=== PATIENT | male | born 1970 | race Caucasian/White ===

== ENCOUNTER 2017-06-29 01:54 | Observation (INO) | payer OTHER ==
[2017-06-29] MEDS ORDERED: Ondansetron 4 MG/2 ML SDV ONE ×2 (02:01→02:04)
[2017-06-29] MEDS ORDERED: HYDROmorphone 1 MG/ML Syringe ONE ×6 (02:02→04:21)
[2017-06-29] MEDS ORDERED: Albuterol 0.083% 2.5 MG/3 ML Neb Soln ONE ×2 (02:04→03:31)
[2017-06-29 02:43] LABS: CHLORIDE,CL 104 mmol/L (98-107); SODIUM,NA 142 mmol/L (136-145)
[2017-06-29] MEDS ORDERED: Sodium Chloride 0.9% 1,000 ML IV ONE (02:50)
[2017-06-29] MEDS ORDERED: Diphtheria,Pertussis(Acell),Tetanus Vaccine 0.5 ML SDV ONE (03:03)
--- NOTE | 2017-06-29 03:32 | EDM.PDOC ---
ED HPI GENERAL MEDICAL PROBLEM - General Chief Complaint: Trauma Stated Complaint: trauma Time Seen by Provider: 06/29/17 01:55 Source of Information: Reports: Patient, Family (), Old Records History Limitations: Reports: No Limitations, Intoxication - History of Present Illness INITIAL COMMENTS - FREE TEXT/NARRATIVE: Patient is a 46-year-old gentleman brought in to the ER by in a private vehicle history obtained from states that patient fell down a flight of stairs hitting his head against the floor at the end of the fall states that he lost consciousness for approximately 3 minutes once he regained consciousness she applied ice to the top of his head because he was bleeding and help him into the car and drove to our hospital states that during the transfer she noted seizure activity patient has history of normal tone no hypoxia sleep apnea right leg pain lower back pain seizure history PTSD and heavy smoking cigarette addiction Onset: Today, Sudden Duration: Minutes:, Improving Location: Reports: Head, Back, Upper Extremity, Right Back Pain Score (Numeric/FACES): 6 - Related Data Allergies Allergy/AdvReac Type Severity Reaction Status Date / Time No Known Allergies Allergy Verified 06/29/17 02:24 Home Meds: Home Meds Citalopram Hydrobromide [Celexa] 40 mg PO DAILY 06/29/17 [History] Cyclobenzaprine [Flexeril] 10 mg PO TID PRN 06/29/17 [History] Divalproex Sodium [Divalproex Sodium ER] 1,500 mg PO BEDTIME 06/29/17 [History] Ibuprofen 800 mg PO TID PRN 06/29/17 [History] Lidocaine 5% [Lidoderm 5%] 700 mg TOP DAILY 06/29/17 [History] Prazosin [Minpress] 1 mg PO BEDTIME 06/29/17 [History] Propranolol HCl [Propranolol] 80 mg PO DAILY 06/29/17 [History] traZODone HCl [Trazodone HCl] 150 mg PO BEDTIME 06/29/17 [History] Social & Family History - Tobacco Use Smoking Status *Q: Current Every Day Smoker Years of Tobacco use: 20 Used Tobacco, but Quit: No - Recreational Drug Use Recreational Drug Use: No Review of Systems - Review of Systems Review Of Systems: See Below Constitutional: Reports: No Symptoms Eyes: Reports: No Symptoms Ears: Reports: No Symptoms Nose: Reports: No Symptoms Mouth/Throat: Reports: Muffled Voice Respiratory: Reports: No Symptoms Cardiovascular: Reports: No Symptoms GI/Abdominal: Reports: No Symptoms Genitourinary: Reports: No Symptoms Musculoskeletal: Reports: Shoulder Pain, Back Pain, Muscle Pain, Muscle Stiffness (Lower back lower back) Skin: Reports: Bruising (Right parietal area), Wound (Right parietal area) Neurological: Reports: Headache, Seizure (History of seizure), Tremors, Difficulty Walking, Weakness, Gait Disturbance Psychiatric: Reports: Depression, Anxiety, Other (PTSD) ED EXAM, GENERAL - Physical Exam Exam: See Below Exam Limited By: No Limitations General Appearance: Alert, WD/WN, Mild Distress Eye Exam: Bilateral Eye: EOMI, PERRL Ears: Normal External Exam, Normal Canal, Hearing Grossly Normal, Normal TMs Ear Exam: Bilateral Ear: Auricle Normal, Canal Normal, TM normal Nose: Normal Inspection, Normal Mucosa, No Blood Throat/Mouth: No: Normal Inspection, Normal Teeth Head: Other (Right temporal occipital hematoma 3 cm laceration over the right parietal area) Neck: Normal Inspection, Supple, Non-Tender, Full Range of Motion, Tender Lateral, Tender Midline Respiratory/Chest: Decreased Breath Sounds (On the right versus the left), Rales (On the right base) Cardiovascular: Normal Peripheral Pulses, Regular Rate, Rhythm, No Edema, No Gallop, No JVD, No Murmur, No Rub GI/Abdominal: Normal Bowel Sounds, Soft, Non-Tender, No Organomegaly, No Distention, No Abnormal Bruit, No Mass (Male) Exam: Deferred Rectal (Males) Exam: Deferred Back Exam: Decreased Range of Motion, Muscle Spasm, Paraspinal Tenderness, Vertebral Tenderness (Lumbar area) Extremities: Arm Pain (Right arm pain), Leg Pain (Left leg pain), Limited Range of Motion (Right shoulder) Neurological: Alert, Oriented, CN II-XII Intact, Normal Cognition, Slow to Respond Psychiatric: Other (History of PTSD) Skin Exam: Warm, Dry, Wound/Incision (Wound over right parietal area) Course - Vital Signs Last Recorded V/S: Last Vital Signs Temp 97.0 F 06/29/17 11:23 Pulse 64 06/29/17 11:23 Resp 20 06/29/17 11:23 BP 112/75 06/29/17 11:23 Pulse Ox 99 06/29/17 11:23 - Orders/Labs/Meds Orders: Active Orders 24 hr Category Date Time Status EKG Documentation Completion [RC] ASDIRECTED Care 06/29/17 02:11 Active C-Spine [Cervical Spine wo Cont] [CT] Stat Exams 06/29/17 02:07 Taken Chest 1V Frontal [CR] Stat Exams 06/29/17 02:10 Taken Head wo Cont [CT] Stat Exams 06/29/17 02:07 Taken Lumbar Spine wo Cont [CT] Stat Exams 06/29/17 02:07 Taken Medication Orders Albuterol/Ipratropium (Duoneb 3.0-0.5 Mg/3 Ml) 3 ml NEB Q4HRRT [facility] Last Admin: 06/29/17 13:43 Dose: 3 ml Admin: 06/29/17 07:51 Dose: 3 ml Citalopram Hydrobromide (Celexa) 40 mg PO DAILY [facility] Last Admin: 06/29/17 07:51 Dose: 40 mg Cyclobenzaprine HCl (Flexeril) 10 mg PO TID PRN PRN Reason: muscle spasms Last Admin: 06/29/17 11:06 Dose: 10 mg Admin: 06/29/17 05:10 Dose: 10 mg Divalproex Sodium (Depakote Er) 1,500 mg PO BEDTIME [facility] Folic Acid (Folic Acid) 1 mg PO DAILY [facility] Last Admin: 06/29/17 07:51 Dose: 1 mg Sodium Chloride (Normal Saline) 1,000 mls @ 150 mls/hr IV ASDIRECTED [facility] Last Admin: 06/29/17 11:11 Dose: 150 mls/hr Infusion: 06/29/17 11:11 Dose: 150 mls/hr Admin: 06/29/17 06:48 Dose: 150 mls/hr Ibuprofen (Motrin) 800 mg PO TID PRN PRN Reason: Pain Last Admin: 06/29/17 05:07 Dose: 800 mg Lidocaine (Lidoderm 5%) 700 mg TOP DAILY [facility] Last Admin: 06/29/17 07:51 Dose: 700 mg Miscellaneous Information (Remove Patch) 1 ea TRDERM Q24H [facility] Nicotine (Habitrol) 21 mg TRDERM DAILY [facility] Last Admin: 06/29/17 07:51 Dose: Not Given Admin: 06/29/17 05:06 Dose: 21 mg Prazosin HCl (Minpress) 1 mg PO BEDTIME JENNY Propranolol HCl (Inderal La) 80 mg PO DAILY JENNY Last Admin: 06/29/17 07:51 Dose: 80 mg Tramadol HCl (Ultram) 50 mg PO Q4H [facility]EN[facility] Trazodone HCl (Trazodone) 150 mg PO BEDTIME [facility] Labs: Laboratory Tests 06/29/17 06/29/17 06/29/17 Range/Units 02:06 02:06 02:06 WBC 7.5 (4.0-10.2) K/uL RBC 4.99 (4.33-5.41) M/uL Hgb 17.3 H (13.1-16.8) g/dL Hct 50.6 H (39.0-49.0) % MCV 101.4 H (84.0-98.0) fL MCH 34.7 H (28.2-33.3) pg MCHC 34.2 (31.7-36.0) g/dL RDW 12.6 (11.2-14.1) % Plt Count 117 L (150-350) K/uL Neut % (Auto) 36.9 L (45.0-80.0) % Lymph % (Auto) 54.9 H (10.0-50.0) % [place] % (Auto) 6.6 (2.0-14.0) % Eos % (Auto) 1.5 (0.0-5.0) % Baso % (Auto) 0.1 (0.0-2.0) % Neut # (Auto) 2.75 (1.40-7.00) K/uL Lymph # (Auto) 4.09 H (0.50-3.50) K/uL [place] # (Auto) 0.49 (0.00-1.00) K/uL Eos # (Auto) 0.11 (0.00-0.50) K/uL Baso # (Auto) 0.01 (0.00-0.20) K/uL PT 10.7 (9.8-11.7) SEC INR 1.0 APTT 23.6 (22.1-29.8) SEC D-Dimer, Quantitative (0-400) ng/mL Sodium 142 (136-145) mmol/L Potassium 3.3 L (3.5-5.1) mmol/L Chloride 104 (98-107) mmol/L Carbon Dioxide 27.5 (21.0-32.0) mmol/L BUN 6 L (7-18) mg/dL Creatinine 0.68 (0.51-1.17) mg/dL Est Cr Clr Drug Dosing TNP Estimated GFR (MDRD) > 60 mL/min Glucose 123 H (74-106) mg/dL Lactic Acid (0.4-2.0) mmol/L Calcium 8.8 (8.5-10.1) mg/dL Total Bilirubin 0.3 (0.2-1.0) mg/dL AST 52 H (15-37) U/L ALT 62 (12-78) U/L Alkaline Phosphatase 112 (46-116) IU/L Creatine Kinase 106 (26-308) U/L Creatine Kinase Index 0.8 (0.0-2.5) % CK-MB (CK-2) 0.80 (0.00-3.60) ng/mL Total Protein 7.1 (6.4-8.2) g/dL Albumin 3.5 (3.4-5.0) g/dL Specimen Type Urine Color Urine Appearance Urine pH (5.0-9.0) Ur Specific [place] (1.005-1.030) Urine Protein (NEGATIVE) mg/dL Urine Glucose (UA) (NEGATIVE) mg/dL Urine Ketones (NEGATIVE) mg/dL Urine Occult Blood (NEGATIVE) Urine Nitrite (NEGATIVE) Urine Bilirubin (NEGATIVE) Urine Urobilinogen (0.2-1.0) E.U./dL Ur Leukocyte Esterase (NEGATIVE) Urine RBC /HPF Urine WBC /HPF Ur Epithelial Cells /LPF Other Crystals /HPF Amorphous Sediment (0/HPF) /HPF Urine Bacteria (NONE TO FEW) /HPF Valproic Acid (50-100) ug/mL Ethyl Alcohol 0.182 H (0.000-0.080) g/dL 06/29/17 06/29/17 06/29/17 Range/Units 02:06 02:06 02:07 WBC (4.0-10.2) K/uL RBC (4.33-5.41) M/uL Hgb (13.1-16.8) g/dL Hct (39.0-49.0) % MCV (84.0-98.0) fL MCH (28.2-33.3) pg MCHC (31.7-36.0) g/dL RDW (11.2-14.1) % Plt Count (150-350) K/uL Neut % (Auto) (45.0-80.0) % Lymph % (Auto) (10.0-50.0) % [place] % (Auto) (2.0-14.0) % Eos % (Auto) (0.0-5.0) % Baso % (Auto) (0.0-2.0) % Neut # (Auto) (1.40-7.00) K/uL Lymph # (Auto) (0.50-3.50) K/uL [place] # (Auto) (0.00-1.00) K/uL Eos # (Auto) (0.00-0.50) K/uL Baso # (Auto) (0.00-0.20) K/uL PT (9.8-11.7) SEC INR APTT (22.1-29.8) SEC D-Dimer, Quantitative 2340 H (0-400) ng/mL Sodium (136-145) mmol/L Potassium (3.5-5.1) mmol/L Chloride (98-107) mmol/L Carbon Dioxide (21.0-32.0) mmol/L BUN (7-18) mg/dL Creatinine (0.51-1.17) mg/dL Est Cr Clr Drug Dosing Estimated GFR (MDRD) mL/min Glucose (74-106) mg/dL Lactic Acid 3.0 H (0.4-2.0) mmol/L Calcium (8.5-10.1) mg/dL Total Bilirubin (0.2-1.0) mg/dL AST (15-37) U/L ALT (12-78) U/L Alkaline Phosphatase (46-116) IU/L Creatine Kinase (26-308) U/L Creatine Kinase Index (0.0-2.5) % CK-MB (CK-2) (0.00-3.60) ng/mL Total Protein (6.4-8.2) g/dL Albumin (3.4-5.0) g/dL Specimen Type Urine Color Urine Appearance Urine pH (5.0-9.0) Ur Specific [place] (1.005-1.030) Urine Protein (NEGATIVE) mg/dL Urine Glucose (UA) (NEGATIVE) mg/dL Urine Ketones (NEGATIVE) mg/dL Urine Occult Blood (NEGATIVE) Urine Nitrite (NEGATIVE) Urine Bilirubin (NEGATIVE) Urine Urobilinogen (0.2-1.0) E.U./dL Ur Leukocyte Esterase (NEGATIVE) Urine RBC /HPF Urine WBC /HPF Ur Epithelial Cells /LPF Other Crystals /HPF Amorphous Sediment (0/HPF) /HPF Urine Bacteria (NONE TO FEW) /HPF Valproic Acid < 3 L (50-100) ug/mL Ethyl Alcohol (0.000-0.080) g/dL 06/29/17 Range/Units 03:15 WBC (4.0-10.2) K/uL RBC (4.33-5.41) M/uL Hgb (13.1-16.8) g/dL Hct (39.0-49.0) % MCV (84.0-98.0) fL MCH (28.2-33.3) pg MCHC (31.7-36.0) g/dL RDW (11.2-14.1) % Plt Count (150-350) K/uL Neut % (Auto) (45.0-80.0) % Lymph % (Auto) (10.0-50.0) % [place] % (Auto) (2.0-14.0) % Eos % (Auto) (0.0-5.0) % Baso % (Auto) (0.0-2.0) % Neut # (Auto) (1.40-7.00) K/uL Lymph # (Auto) (0.50-3.50) K/uL [place] # (Auto) (0.00-1.00) K/uL Eos # (Auto) (0.00-0.50) K/uL Baso # (Auto) (0.00-0.20) K/uL PT (9.8-11.7) SEC INR APTT (22.1-29.8) SEC D-Dimer, Quantitative (0-400) ng/mL Sodium (136-145) mmol/L Potassium (3.5-5.1) mmol/L Chloride (98-107) mmol/L Carbon Dioxide (21.0-32.0) mmol/L BUN (7-18) mg/dL Creatinine (0.51-1.17) mg/dL Est Cr Clr Drug Dosing Estimated GFR (MDRD) mL/min Glucose (74-106) mg/dL Lactic Acid (0.4-2.0) mmol/L Calcium (8.5-10.1) mg/dL Total Bilirubin (0.2-1.0) mg/dL AST (15-37) U/L ALT (12-78) U/L Alkaline Phosphatase (46-116) IU/L Creatine Kinase (26-308) U/L Creatine Kinase Index (0.0-2.5) % CK-MB (CK-2) (0.00-3.60) ng/mL Total Protein (6.4-8.2) g/dL Albumin (3.4-5.0) g/dL Specimen Type Urinvoid Urine Color Dark yellow Urine Appearance Cloudy Urine pH 6.0 (5.0-9.0) Ur Specific [place] >= 1.030 (1.005-1.030) Urine Protein 30 H (NEGATIVE) mg/dL Urine Glucose (UA) Negative (NEGATIVE) mg/dL Urine Ketones 15 H (NEGATIVE) mg/dL Urine Occult Blood Trace-lysed H (NEGATIVE) Urine Nitrite Negative (NEGATIVE) Urine Bilirubin Small H (NEGATIVE) Urine Urobilinogen 1.0 (0.2-1.0) E.U./dL Ur Leukocyte Esterase Negative (NEGATIVE) Urine RBC 0-5 /HPF Urine WBC 0-5 /HPF Ur Epithelial Cells Rare /LPF Other Crystals See note /HPF Amorphous Sediment Many H (0/HPF) /HPF Urine Bacteria Rare (NONE TO FEW) /HPF Valproic Acid (50-100) ug/mL Ethyl Alcohol (0.000-0.080) g/dL Meds: Medications Generic Name Dose Route Start Last Admin Trade Name Freq PRN Reason Stop Dose Admin Albuterol/Ipratropium 3 ml 06/29/17 08:00 06/29/17 13:43 Duoneb 3.0-0.5 Mg/3 Ml NEB 3 ml Q4HRRT JENNY Administration Citalopram Hydrobromide 40 mg 06/29/17 08:00 06/29/17 07:51 Celexa PO 40 mg DAILY JENNY Administration Cyclobenzaprine HCl 10 mg 06/29/17 04:34 06/29/17 11:06 Flexeril PO 10 mg TID PRN Administration muscle spasms Divalproex Sodium 1,500 mg 06/29/17 20:00 Depakote Er PO BEDTIME JENNY Folic Acid 1 mg 06/29/17 08:00 06/29/17 07:51 Folic Acid PO 1 mg DAILY JENNY Administration Sodium Chloride 1,000 mls @ 150 mls/hr 06/29/17 06:45 06/29/17 11:11 Normal Saline IV 150 mls/hr ASDIRECTED JENNY Administration Ibuprofen 800 mg 06/29/17 04:34 06/29/17 05:07 Motrin PO 800 mg TID PRN Administration Pain Lidocaine 700 mg 06/29/17 08:00 06/29/17 07:51 Lidoderm 5% TOP 700 mg DAILY JENNY Administration Miscellaneous Information 1 ea 06/29/17 20:00 Remove Patch TRDERM Q24H [facility] Nicotine 21 mg 06/29/17 04:44 06/29/17 07:51 Habitrol TRDERM Not Given DAILY JENNY Prazosin HCl 1 mg 06/29/17 20:00 Minpress PO BEDTIME JENNY Propranolol HCl 80 mg 06/29/17 08:00 06/29/17 07:51 Inderal La PO 80 mg DAILY JENNY Administration Tramadol HCl 50 mg 06/29/17 12:00 Ultram PO Q4H JENNY Trazodone HCl 150 mg 06/29/17 20:00 Trazodone PO BEDTIME JENNY Discontinued Medications Generic Name Dose Route Start Last Admin Trade Name Freq PRN Reason Stop Dose Admin Albuterol Confirm 06/29/17 03:31 06/29/17 04:33 Proventil Neb Soln Administered 06/29/17 03:32 Not Given Dose 2.5 mg .ROUTE .STK-MED ONE Diphtheria/Tetanus/Acell Pertussis Confirm 06/29/17 03:03 06/29/17 04:33 Adacel Administered 06/29/17 03:04 Not Given Dose 0.5 ml .ROUTE .STK-MED ONE Hydromorphone HCl Confirm 06/29/17 02:02 06/29/17 04:32 Dilaudid Administered 06/29/17 02:03 Not Given Dose 1 mg .ROUTE .STK-MED ONE Hydromorphone HCl Confirm 06/29/17 02:40 06/29/17 04:32 Dilaudid Administered 06/29/17 02:41 Not Given Dose 1 mg .ROUTE .STK-MED ONE Hydromorphone HCl Confirm 06/29/17 04:21 06/29/17 04:33 Dilaudid Administered 06/29/17 04:22 Not Given Dose 1 mg .ROUTE .STK-MED ONE Hydromorphone HCl 1 mg 06/29/17 04:29 06/29/17 10:25 Dilaudid IVPUSH 1 mg Q4H PRN Administration Pain (moderate 4-6) Influenza Virus Vaccine 60 mcg 06/29/17 11:00 06/29/17 11:07 Fluzone Quad [id number] IM 06/29/17 11:01 60 mcg .ONCE ONE Administration Nicotine 21 mg 06/29/17 08:00 Habitrol TRDERM DAILY JENNY Ondansetron HCl Confirm 06/29/17 02:01 06/29/17 04:32 Zofran Administered 06/29/17 02:02 Not Given Dose 4 mg .ROUTE .STK-MED ONE Pneumococcal 13-Valent Conj Vacc 0.5 ml 06/29/17 11:00 06/29/17 11:09 Prevnar 13 IM 06/29/17 11:01 0.5 ml .ONCE ONE Administration Thiamine HCl 100 mg 06/29/17 04:31 06/29/17 05:10 Vitamin B-1 PO 06/29/17 04:32 100 mg ONETIME ONE Administration Departure - Departure Time of Disposition: 02:30 Disposition: Refer to Observation Clinical Impression: Chronic lumbar pain, PTSD (post-traumatic stress disorder), Sleep apnea, organic, Right shoulder pain - Discharge Information - Problem List & Annotations (1) Right shoulder pain SNOMED Code(s): 86558571 Code(s): M25.511 - PAIN IN RIGHT SHOULDER Status: Acute Current Visit: Yes Annotation/Comment:: Patient has history of right shoulder pain that MRI does not know results was not giving a diagnosis or treatment plan did receive physical therapy Qualifiers: Chronicity: chronic Qualified Code(s): M25.511 - Pain in right shoulder; G89.29 - Other chronic pain; G89.29 - Other chronic pain (2) Chronic lumbar pain SNOMED Code(s): 136323654 Code(s): M54.5 - LOW BACK PAIN; G89.29 - OTHER CHRONIC PAIN Status: Acute Current Visit: Yes Annotation/Comment:: Chronic back pain with right-sided radiculopathy described as pins and needles and tingling Qualifiers: Back pain laterality: midline (3) Sleep apnea, organic SNOMED Code(s): 39117433 Code(s): G47.30 - SLEEP APNEA, UNSPECIFIED Status: Acute Current Visit: Yes (4) PTSD (post-traumatic stress disorder) SNOMED Code(s): 23529250 Code(s): F43.10 - POST-TRAUMATIC STRESS DISORDER, UNSPECIFIED Status: Acute Current Visit: Yes (5) Alcohol abuse SNOMED Code(s): 23379504 Code(s): F10.10 - ALCOHOL ABUSE, UNCOMPLICATED Status: Acute Current Visit: Yes Annotation/Comment:: History of chronic alcohol use with elevated enzymes denies pain at this time - Problem List Review Problem List Initiated/Reviewed/Updated: Yes - My Orders Last 24 Hours: My Active Orders 06/29/17 02:07 C-Spine [Cervical Spine wo Cont] [CT] Stat Head wo Cont [CT] Stat Lumbar Spine wo Cont [CT] Stat 06/29/17 02:10 Chest 1V Frontal [CR] Stat 06/29/17 02:11 EKG Documentation Completion [RC] ASDIRECTED - Assessment/Plan Admission H&P: Please use this note as an admission H&P Last 24 Hours: My Active Orders 06/29/17 02:07 C-Spine [Cervical Spine wo Cont] [CT] Stat Head wo Cont [CT] Stat Lumbar Spine wo Cont [CT] Stat 06/29/17 02:10 Chest 1V Frontal [CR] Stat 06/29/17 02:11 EKG Documentation Completion [RC] ASDIRECTED Plan: We will admit patient for observation and pain control repeat x-rays in the morning and discharged to his primary care spoke with Dr. Multani will admit for observation will call in the morning to update report
[2017-06-29] MEDS ORDERED: Thiamine 100 MG Tab PO ONE (04:31)
[2017-06-29] MEDS: Nicotine 21 MG/24 Hr Patch TRDERM SCH ×2 (05:06→07:51)
[2017-06-29] MEDS: Ibuprofen 400 MG Tab PO PRN (05:07)
[2017-06-29] MEDS: Cyclobenzaprine 10 MG Tab PO PRN ×2 (05:10→11:06)
[2017-06-29] MEDS: HYDROmorphone 1 MG/ML Syringe IVPUSH PRN ×2 (06:44→10:25)
[2017-06-29] MEDS ORDERED: Pneumococcal Polyvalent-23 Vaccine 0.5 ML SDV IM ONE (06:48)
[2017-06-29] MEDS: Sodium Chloride 0.9% 1,000 ML IV SCH ×3 (06:48→19:10)
[2017-06-29] MEDS ORDERED: FLU Vacc QS 2017-18 (36mos UP)/PF 60 MCG/0.5 ML Syringe IM ONE ×2 (07:00→11:00)
[2017-06-29] MEDS: Propranolol 80 MG Cap.ER PO SCH (07:51)
[2017-06-29] MEDS: Folic Acid 1 MG Tab PO SCH (07:51)
[2017-06-29] MEDS: Lidocaine 5% 700 MG Patch TOP SCH (07:51)
[2017-06-29] MEDS: Albuterol/Ipratropium 3.0-0.5 MG/3 ML Neb Soln NEB SCH ×4 (07:51→20:02)
[2017-06-29] MEDS: Citalopram 20 MG Tab PO SCH (07:51)
[2017-06-29] MEDS ORDERED: Nicotine 21 MG/24 Hr Patch TRDERM SCH (08:00)
[2017-06-29] MEDS ORDERED: Pneumococcal 13-Valent Conjugate Vaccine 0.5 ML Syringe IM ONE (11:00)
--- NOTE | 2017-06-29 11:16 | PCM.SN ---
- Free Text/Narrative Note: spoke with Dr. Emily alfonso transferring and the [facility] secondary to hypoxia and sleep apnea the transfer team at the [facility] will work on getting a bed for this patient they will contact us as soon as possible we'll keep him here overnight
[2017-06-29] MEDS: traMADol 50 MG Tab PO SCH ×2 (15:00→16:54)
--- NOTE | 2017-06-29 15:19 | PCM.PN ---
- General Info Date of Service: 06/29/17 Admission Dx/Problem (Free Text): Hypoxia patient labs reviewed elevated d-dimer's 2340 Functional Status: Reports: Pain Controlled - Review of Systems General: Reports: Weakness HEENT: Reports: No Symptoms Pulmonary: Reports: Other (Hypoxia when not wearing oxygen) Cardiovascular: Reports: No Symptoms Gastrointestinal: Reports: No Symptoms Genitourinary: Reports: No Symptoms Musculoskeletal: Reports: Shoulder Pain Skin: Reports: No Symptoms Neurological: Reports: No Symptoms - Patient Data Vitals - Most Recent: Last Vital Signs Temp 97.0 F 06/29/17 11:23 Pulse 64 06/29/17 11:23 Resp 20 06/29/17 11:23 BP 112/75 06/29/17 11:23 Pulse Ox 99 06/29/17 11:23 Weight - Most Recent: 185 lb 0.014 oz I&O - Last 24 Hours: Intake & Output 06/29/17 06/29/17 06/29/17 06:59 14:59 22:59 Intake Total 400 800 Output Total 100 50 Balance 300 750 Med Orders - Current: Current Medications Albuterol/Ipratropium (Duoneb 3.0-0.5 Mg/3 Ml) 3 ml NEB Q4HRRT [facility] Last Admin: 06/29/17 13:43 Dose: 3 ml Citalopram Hydrobromide (Celexa) 40 mg PO DAILY [facility] Last Admin: 06/29/17 07:51 Dose: 40 mg Cyclobenzaprine HCl (Flexeril) 10 mg PO TID PRN PRN Reason: muscle spasms Last Admin: 06/29/17 11:06 Dose: 10 mg Divalproex Sodium (Depakote Er) 1,500 mg PO BEDTIME [facility] Folic Acid (Folic Acid) 1 mg PO DAILY [facility] Last Admin: 06/29/17 07:51 Dose: 1 mg Sodium Chloride (Normal Saline) 1,000 mls @ 150 mls/hr IV ASDIRECTED [facility] Last Admin: 06/29/17 11:11 Dose: 150 mls/hr Ibuprofen (Motrin) 800 mg PO TID PRN PRN Reason: Pain Last Admin: 06/29/17 05:07 Dose: 800 mg Lidocaine (Lidoderm 5%) 700 mg TOP DAILY [facility] Last Admin: 06/29/17 07:51 Dose: 700 mg Miscellaneous Information (Remove Patch) 1 ea TRDERM Q24H [facility] Nicotine (Habitrol) 21 mg TRDERM DAILY [facility] Last Admin: 06/29/17 07:51 Dose: Not Given Prazosin HCl (Minpress) 1 mg PO BEDTIME [facility] Propranolol HCl (Inderal La) 80 mg PO DAILY [facility] Last Admin: 06/29/17 07:51 Dose: 80 mg Tramadol HCl (Ultram) 50 mg PO Q4H [facility] Last Admin: 06/29/17 15:00 Dose: 50 mg Trazodone HCl (Trazodone) 150 mg PO BEDTIME [facility] Discontinued Medications Albuterol (Proventil Neb Soln) Confirm Administered Dose 2.5 mg .ROUTE .STK-MED ONE Stop: 06/29/17 03:32 Last Admin: 06/29/17 04:33 Dose: Not Given Diphtheria/Tetanus/Acell Pertussis (Adacel) Confirm Administered Dose 0.5 ml .ROUTE .STK-MED ONE Stop: 06/29/17 03:04 Last Admin: 06/29/17 04:33 Dose: Not Given Hydromorphone HCl (Dilaudid) Confirm Administered Dose 1 mg .ROUTE .STK-MED ONE Stop: 06/29/17 02:03 Last Admin: 06/29/17 04:32 Dose: Not Given Hydromorphone HCl (Dilaudid) Confirm Administered Dose 1 mg .ROUTE .STK-MED ONE Stop: 06/29/17 02:41 Last Admin: 06/29/17 04:32 Dose: Not Given Hydromorphone HCl (Dilaudid) Confirm Administered Dose 1 mg .ROUTE .STK-MED ONE Stop: 06/29/17 04:22 Last Admin: 06/29/17 04:33 Dose: Not Given Hydromorphone HCl (Dilaudid) 1 mg IVPUSH Q4H PRN PRN Reason: Pain (moderate 4-6) Last Admin: 06/29/17 10:25 Dose: 1 mg Influenza Virus Vaccine (Fluzone Quad 7129-1197) 60 mcg IM .ONCE ONE Stop: 06/29/17 11:01 Last Admin: 06/29/17 11:07 Dose: 60 mcg Nicotine (Habitrol) 21 mg TRDERM DAILY [facility] Ondansetron HCl (Zofran) Confirm Administered Dose 4 mg .ROUTE .STK-MED ONE Stop: 06/29/17 02:02 Last Admin: 06/29/17 04:32 Dose: Not Given Pneumococcal 13-Valent Conj Vacc (Prevnar 13) 0.5 ml IM .ONCE ONE Stop: 06/29/17 11:01 Last Admin: 06/29/17 11:09 Dose: 0.5 ml Thiamine HCl (Vitamin B-1) 100 mg PO ONETIME ONE Stop: 06/29/17 04:32 Last Admin: 06/29/17 05:10 Dose: 100 mg - Exam Quality Assessment: Supplemental Oxygen General: Alert, Oriented HEENT: Pupils Equal, Pupils Reactive, EOMI, Mucous Membr. Moist/[place] Neck: Supple Lungs: Clear to Auscultation, Normal Respiratory Effort Cardiovascular: Regular Rate, Regular Rhythm GI/Abdominal Exam: Normal Bowel Sounds, Soft, Non-Tender, No Organomegaly, No Distention, No Abnormal Bruit, No Mass, Pelvis Stable (Male) Exam: Deferred Back Exam: Decreased Range of Motion, Muscle Spasm, Vertebral Tenderness Extremities: Normal Inspection, Normal Range of Motion, Non-Tender, No Pedal Edema, Normal Capillary Refill Skin: Warm, Dry, Intact Neurological: No New Focal Deficit Psy/Mental Status: Alert, Normal Affect, Normal Mood - Problem List & Annotations (1) Right shoulder pain SNOMED Code(s): 81515764 Code(s): M25.511 - PAIN IN RIGHT SHOULDER Status: Acute Current Visit: Yes Qualifiers: Chronicity: chronic Qualified Code(s): M25.511 - Pain in right shoulder; G89.29 - Other chronic pain; G89.29 - Other chronic pain Annotation/Comment:: Patient has history of right shoulder pain that MRI does not know results was not giving a diagnosis or treatment plan did receive physical therapy (2) Chronic lumbar pain SNOMED Code(s): 715529947 Code(s): M54.5 - LOW BACK PAIN; G89.29 - OTHER CHRONIC PAIN Status: Acute Current Visit: Yes Qualifiers: Back pain laterality: midline Annotation/Comment:: Chronic back pain with right-sided radiculopathy described as pins and needles and tingling (3) Sleep apnea, organic SNOMED Code(s): 57716058 Code(s): G47.30 - SLEEP APNEA, UNSPECIFIED Status: Acute Current Visit: Yes Annotation/Comment:: Patient had hypoxia today saturations going down to the 70s on room air d-dimer elevated 2340 will proceed with CAT scan of the lungs rule out pulmonary embolus (4) PTSD (post-traumatic stress disorder) SNOMED Code(s): 47467769 Code(s): F43.10 - POST-TRAUMATIC STRESS DISORDER, UNSPECIFIED Status: Acute Current Visit: Yes (5) Alcohol abuse SNOMED Code(s): 79676029 Code(s): F10.10 - ALCOHOL ABUSE, UNCOMPLICATED Status: Acute Current Visit: Yes Annotation/Comment:: History of chronic alcohol use with elevated enzymes denies pain at this time - Problem List Review Problem List Initiated/Reviewed/Updated: Yes - My Orders Last 24 Hours: My Active Orders 06/29/17 04:19 Patient Status [ADT] Routine Ambulate [RC] ASDIRECTED Bedrest Bathroom Privileges [RC] ASDIRECTED Vital Signs [RC] Q4HR GM Immunization Reflex [OM.PC] Click To Edit 06/29/17 04:25 Oxygen Therapy [RC] CONTINUOUS Pulse Oximetry [RC] CONTINUOUS 06/29/17 04:27 Vaccines to be Administered [RC] PER UNIT ROUTINE 06/29/17 04:33 Shoulder Comp Rt [CR] Routine 06/29/17 04:34 Cyclobenzaprine [Flexeril] 10 mg PO TID PRN Ibuprofen [Motrin] 800 mg PO TID PRN 06/29/17 04:39 RT Aerosol Therapy [RC] Q4HR 06/29/17 04:44 Nicotine [Habitrol] 21 mg TRDERM DAILY 06/29/17 04:47 Cardiac Monitoring [RC] Q2HR 06/29/17 05:21 Code Status [Resuscitation Status] Routine 06/29/17 06:45 Sodium Chloride 0.9% [Normal Saline] 1,000 ml IV ASDIRECTED 06/29/17 08:00 Albuterol/Ipratropium [DuoNeb 3.0-0.5 MG/3 ML] 3 ml NEB Q4HRRT Citalopram [Celexa] 40 mg PO DAILY Folic Acid 1 mg PO DAILY Lidocaine 5% [Lidoderm 5%] 700 mg TOP DAILY Propranolol [Inderal LA] 80 mg PO DAILY 06/29/17 12:00 traMADol [Ultram] 50 mg PO Q4H 06/29/17 12:58 Chest 2V [CR] Routine 06/29/17 20:00 Divalproex Sodium [Depakote ER] 1,500 mg PO BEDTIME Prazosin [Minpress] 1 mg PO BEDTIME Remove Patch 1 ea TRDERM Q24H traZODone 150 mg PO BEDTIME 06/29/17 Breakfast Regular Diet [DIET]
[2017-06-29] MEDS ORDERED: Iopamidol 755 Mg/ML 100 ML Bottle IVPUSH ONE (15:45)
[2017-06-29 17:22] LABS: CHLORIDE,CL 101 mmol/L (98-107); SODIUM,NA 137 mmol/L (136-145)
--- NOTE | 2017-06-29 17:36 | PCM.SN ---
- Free Text/Narrative Note: Patient is a 46-year-old who was seen at the request of the nurses secondary to chest pressure and rectal bleeding both are new patient was taken to CT prior to this for a Angio CT to rule out pulmonary embolism D dimers were elevated and saturations were dipping when not on oxygen to about height 70s patient also complained of some blood in the stool noticed after passing gas patient noticed a couple drops of blood dripping into the toilet bowl Physical exam patient patient is alert oriented time and place lungs were clear heart regular rate and rhythm he had pain on palpation over the left chest abdomen was soft nontender no masses no organomegaly extremities patient had good strength in all 4 extremities with some right shoulder pain which was post accident and back pain. EKG was done noticed some EKG changes on lead V2 ST elevations minimal and V2 through V6 showed poor R progression at this time troponins were negative O2 saturations were in the high 90s on 3 L his hemoglobin did drop probably secondary to a combination of things like rehydration and maybe bleed Assessment after review EKG and troponins I feel that this is just lead placement. The rectal bleeding was scant about 3 drops we will Plan we will go ahead and do a series of troponins I spoke with cardiology and agree with the plans we will not give him aspirin at this time again very to possible GI bleed repeat hemoglobin with next draw we did discuss this with cardiology and they agreed
[2017-06-29] MEDS: traMADol 50 MG Tab PO PRN (19:09)
[2017-06-29] MEDS ORDERED: Prazosin 1 MG Cap PO SCH (20:00)
[2017-06-29] MEDS ORDERED: Divalproex Sodium 250 MG Tab.ER PO SCH (20:00)
[2017-06-29] MEDS ORDERED: traZODone 50 MG Tab PO SCH (20:00)
[2017-06-29] MEDS ORDERED: Sodium Chloride 0.9% 10 ML Syringe FLUSH SCH (23:45)
[2017-06-30] MEDS: Albuterol/Ipratropium 3.0-0.5 MG/3 ML Neb Soln NEB SCH ×4 (01:05→11:33)
[2017-06-30] MEDS: Ibuprofen 400 MG Tab PO PRN (01:10)
[2017-06-30] MEDS: Cyclobenzaprine 10 MG Tab PO PRN ×2 (01:10→10:33)
[2017-06-30] MEDS: Sodium Chloride 0.9% 1,000 ML IV SCH ×2 (01:18→08:58)
[2017-06-30] MEDS: traMADol 50 MG Tab PO PRN ×2 (04:41→09:14)
[2017-06-30] MEDS ORDERED: Sodium Chloride 0.9% 10 ML Syringe FLUSH SCH (08:00)
[2017-06-30] MEDS: Lidocaine 5% 700 MG Patch TOP SCH (08:55)
[2017-06-30] MEDS: Nicotine 21 MG/24 Hr Patch TRDERM SCH (08:57)
[2017-06-30] MEDS: Folic Acid 1 MG Tab PO SCH (09:00)
[2017-06-30] MEDS: Propranolol 80 MG Cap.ER PO SCH (09:00)
[2017-06-30] MEDS: Citalopram 20 MG Tab PO SCH (09:00)
[2017-06-30 11:24] VITALS: BP 107/70
--- NOTE | 2017-06-30 11:26 | PCM.PN ---
- General Info Date of Service: 06/30/17 Admission Dx/Problem (Free Text): Patient is a 46-year-old male was admitted status post blunt trauma to the head he was placed to observation and pain control. At this time patient was noticed to be hypoxic when on room air he would desaturate quite rapidly to the high 70s , requiring 5 L NC supplemental oxygen. He was recently diagnosed with sleep apnea at the [facility], but was not placed on treatment during his hospitalization. We did a D-dimer secondary to the hypoxia which was elevated to 2340 and proceeded with a CTA of the chest which was negative for PE but was read as COPD. At this time it was also noted that he had rectal bleeding after passing gas he noted 3 or 4 drops of blood in the toilet this is new to him, currently hemoglobin is stable at 13.7 this is a drop about 4 g since admission but has been stable no further rectal bleeding noted rectal exam revealed no gross blood in rectum but heme positive stools. Functional Status: Reports: Pain Controlled, Tolerating Diet Pain Score: 7 - Review of Systems General: Reports: Weakness HEENT: Reports: No Symptoms Pulmonary: Reports: Shortness of Breath (With ambulation) Cardiovascular: Reports: No Symptoms, Other (Patient had cardiac workup secondary to chest pressure in this admission this was negative) Gastrointestinal: Reports: Melena Genitourinary: Reports: No Symptoms Musculoskeletal: Reports: Shoulder Pain (Right shoulder), Back Pain Skin: Reports: Other (Laceration over right perianal area) Neurological: Reports: No Symptoms Psychiatric: Reports: Depression, Anxiety - Patient Data Vitals - Most Recent: Last Vital Signs Temp 97 F 06/30/17 08:00 Pulse 65 06/30/17 08:00 Resp 18 06/30/17 04:44 BP 104/74 06/30/17 08:00 Pulse Ox 98 06/30/17 08:00 Weight - Most Recent: 185 lb 0.014 oz I&O - Last 24 Hours: Intake & Output 06/29/17 06/30/17 06/30/17 22:59 06:59 14:59 Intake Total 3488 3292 360 Output Total 550 1000 Balance 2938 2292 360 Lab Results Last 24 Hours: Laboratory Results - last 24 hr 06/29/17 06/29/17 06/29/17 Range/Units 17:00 17:00 22:30 WBC 5.5 5.2 (4.0-10.2) K/uL RBC 4.11 L 3.94 L (4.33-5.41) M/uL Hgb 14.2 D 13.5 (13.1-16.8) g/dL Hct 42.8 41.1 (39.0-49.0) % MCV 104.1 H 104.3 H (84.0-98.0) fL MCH 34.5 H 34.3 H (28.2-33.3) pg MCHC 33.2 32.8 (31.7-36.0) g/dL RDW 12.8 12.5 (11.2-14.1) % Plt Count 90 L 80 L (150-350) K/uL Neut % (Auto) 65.9 62.3 (45.0-80.0) % Lymph % (Auto) 25.9 28.8 (10.0-50.0) % [place] % (Auto) 6.7 7.3 (2.0-14.0) % Eos % (Auto) 1.3 1.4 (0.0-5.0) % Baso % (Auto) 0.2 0.2 (0.0-2.0) % Neut # (Auto) 3.62 3.23 (1.40-7.00) K/uL Lymph # (Auto) 1.42 1.49 (0.50-3.50) K/uL [place] # (Auto) 0.37 0.38 (0.00-1.00) K/uL Eos # (Auto) 0.07 0.07 (0.00-0.50) K/uL Baso # (Auto) 0.01 0.01 (0.00-0.20) K/uL Sodium 137 (136-145) mmol/L Potassium 3.5 (3.5-5.1) mmol/L Chloride 101 (98-107) mmol/L Carbon Dioxide 26.7 (21.0-32.0) mmol/L BUN 9 (7-18) mg/dL Creatinine 0.58 (0.51-1.17) mg/dL Est Cr Clr Drug Dosing 157.82 mL/min Estimated GFR (MDRD) > 60 mL/min Glucose 92 (74-106) mg/dL Calcium 8.0 L (8.5-10.1) mg/dL Troponin I 0.000 (0.000-0.056) ng/mL 06/29/17 06/30/17 06/30/17 Range/Units 22:30 07:15 07:15 WBC 4.1 (4.0-10.2) K/uL RBC 4.00 L (4.33-5.41) M/uL Hgb 13.7 (13.1-16.8) g/dL Hct 42.0 (39.0-49.0) % MCV 105.0 H (84.0-98.0) fL MCH 34.3 H (28.2-33.3) pg MCHC 32.6 (31.7-36.0) g/dL RDW 12.4 (11.2-14.1) % Plt Count 70 L (150-350) K/uL Neut % (Auto) 53.4 (45.0-80.0) % Lymph % (Auto) 37.8 (10.0-50.0) % [place] % (Auto) 6.4 (2.0-14.0) % Eos % (Auto) 2.2 (0.0-5.0) % Baso % (Auto) 0.2 (0.0-2.0) % Neut # (Auto) 2.17 (1.40-7.00) K/uL Lymph # (Auto) 1.54 (0.50-3.50) K/uL [place] # (Auto) 0.26 (0.00-1.00) K/uL Eos # (Auto) 0.09 (0.00-0.50) K/uL Baso # (Auto) 0.01 (0.00-0.20) K/uL Sodium (136-145) mmol/L Potassium (3.5-5.1) mmol/L Chloride (98-107) mmol/L Carbon Dioxide (21.0-32.0) mmol/L BUN (7-18) mg/dL Creatinine (0.51-1.17) mg/dL Est Cr Clr Drug Dosing mL/min Estimated GFR (MDRD) mL/min Glucose (74-106) mg/dL Calcium (8.5-10.1) mg/dL Troponin I 0.000 0.002 (0.000-0.056) ng/mL Med Orders - Current: Current Medications Albuterol/Ipratropium (Duoneb 3.0-0.5 Mg/3 Ml) 3 ml NEB Q4HRRT [facility] Last Admin: 06/30/17 09:00 Dose: 3 ml Citalopram Hydrobromide (Celexa) 40 mg PO DAILY [facility] Last Admin: 06/30/17 09:00 Dose: 40 mg Cyclobenzaprine HCl (Flexeril) 10 mg PO TID PRN PRN Reason: muscle spasms Last Admin: 06/30/17 10:33 Dose: 10 mg Divalproex Sodium (Depakote Er) 1,500 mg PO BEDTIME [facility] Last Admin: 06/29/17 20:03 Dose: 1,500 mg Folic Acid (Folic Acid) 1 mg PO DAILY [facility] Last Admin: 06/30/17 09:00 Dose: 1 mg Sodium Chloride (Normal Saline) 1,000 mls @ 150 mls/hr IV ASDIRECTED [facility] Last Admin: 06/30/17 08:58 Dose: 150 mls/hr Ibuprofen (Motrin) 800 mg PO TID PRN PRN Reason: Pain Last Admin: 06/30/17 01:10 Dose: 800 mg Lidocaine (Lidoderm 5%) 700 mg TOP DAILY [facility] Last Admin: 06/30/17 08:55 Dose: 700 mg Miscellaneous Information (Remove Patch) 1 ea TRDERM Q24H [facility] Last Admin: 06/29/17 20:05 Dose: 1 ea Nicotine (Habitrol) 21 mg TRDERM DAILY [facility] Last Admin: 06/30/17 08:57 Dose: 21 mg Prazosin HCl (Minpress) 1 mg PO BEDTIME [facility] Last Admin: 06/29/17 20:05 Dose: 1 mg Propranolol HCl (Inderal La) 80 mg PO DAILY [facility] Last Admin: 06/30/17 09:00 Dose: 80 mg Sodium Chloride (Saline Flush) 10 ml FLUSH Q12HR [facility] Sodium Chloride (Saline Flush) 10 ml FLUSH ASDIRECTED [facility] Tramadol HCl (Ultram) 50 mg PO Q4H PRN PRN Reason: pain Last Admin: 06/30/17 09:14 Dose: 50 mg Trazodone HCl (Trazodone) 150 mg PO BEDTIME [facility] Last Admin: 06/29/17 20:04 Dose: 150 mg Discontinued Medications Albuterol (Proventil Neb Soln) Confirm Administered Dose 2.5 mg .ROUTE .STK-MED ONE Stop: 06/29/17 03:32 Last Admin: 06/29/17 04:33 Dose: Not Given Albuterol (Proventil Neb Soln) 2.5 mg .ROUTE .STK-MED ONE Stop: 06/29/17 02:05 Diphtheria/Tetanus/Acell Pertussis (Adacel) Confirm Administered Dose 0.5 ml .ROUTE .STK-MED ONE Stop: 06/29/17 03:04 Last Admin: 06/29/17 04:33 Dose: Not Given Hydromorphone HCl (Dilaudid) Confirm Administered Dose 1 mg .ROUTE .STK-MED ONE Stop: 06/29/17 02:03 Last Admin: 06/29/17 04:32 Dose: Not Given Hydromorphone HCl (Dilaudid) Confirm Administered Dose 1 mg .ROUTE .STK-MED ONE Stop: 06/29/17 02:41 Last Admin: 06/29/17 04:32 Dose: Not Given Hydromorphone HCl (Dilaudid) Confirm Administered Dose 1 mg .ROUTE .STK-MED ONE Stop: 06/29/17 04:22 Last Admin: 06/29/17 04:33 Dose: Not Given Hydromorphone HCl (Dilaudid) 1 mg IVPUSH Q4H PRN PRN Reason: Pain (moderate 4-6) Last Admin: 06/29/17 10:25 Dose: 1 mg Hydromorphone HCl (Dilaudid) 0.5 mg .ROUTE .STK-MED ONE Stop: 06/29/17 02:05 Hydromorphone HCl (Dilaudid) 1 mg .ROUTE .STK-MED ONE Stop: 06/29/17 02:05 Hydromorphone HCl (Dilaudid) 1 mg .ROUTE .STK-MED ONE Stop: 06/29/17 02:05 Sodium Chloride (Normal Saline) 1,000 mls @ as directed IV .STK-MED ONE Stop: 06/29/17 02:51 Influenza Virus Vaccine (Fluzone Quad 4037-9956) 60 mcg IM .ONCE ONE Stop: 06/29/17 11:01 Last Admin: 06/29/17 11:07 Dose: 60 mcg Iopamidol (Isovue-370 (76%)) 100 ml IVPUSH ONETIME ONE Stop: 06/29/17 15:46 Last Admin: 06/29/17 16:02 Dose: 100 ml Nicotine (Habitrol) 21 mg TRDERM DAILY [facility] Ondansetron HCl (Zofran) Confirm Administered Dose 4 mg .ROUTE .STK-MED ONE Stop: 06/29/17 02:02 Last Admin: 06/29/17 04:32 Dose: Not Given Ondansetron HCl (Zofran) 4 mg .ROUTE .STK-MED ONE Stop: 06/29/17 02:05 Pneumococcal 13-Valent Conj Vacc (Prevnar 13) 0.5 ml IM .ONCE ONE Stop: 06/29/17 11:01 Last Admin: 06/29/17 11:09 Dose: 0.5 ml Thiamine HCl (Vitamin B-1) 100 mg PO ONETIME ONE Stop: 06/29/17 04:32 Last Admin: 06/29/17 05:10 Dose: 100 mg Tramadol HCl (Ultram) 50 mg PO Q4H [facility] Last Admin: 06/29/17 16:54 Dose: Not Given - Exam Quality Assessment: Supplemental Oxygen General: Alert, Oriented HEENT: Pupils Equal, Pupils Reactive, EOMI, Mucous Membr. Moist/[place] Neck: Supple Lungs: Decreased Breath Sounds, Wheezing (Expiratory wheezing) Cardiovascular: Regular Rate, Regular Rhythm GI/Abdominal Exam: Normal Bowel Sounds, Soft, Non-Tender, No Organomegaly, No Distention, No Abnormal Bruit, No Mass, Pelvis Stable, Other (Hemoccult-positive ) (Male) Exam: No Hernia, Normal Inspection, Normal Prostate, Circumcised Back Exam: Decreased Range of Motion, Muscle Spasm, Paraspinal Tenderness ( Lumbar area) Extremities: Normal Inspection Skin: Warm, Dry, Intact Neurological: No New Focal Deficit Psy/Mental Status: Alert, Normal Affect, Normal Mood - Problem List & Annotations (1) Right shoulder pain SNOMED Code(s): 66511569 Code(s): M25.511 - PAIN IN RIGHT SHOULDER Status: Acute Current Visit: Yes Qualifiers: Chronicity: chronic Qualified Code(s): M25.511 - Pain in right shoulder; G89.29 - Other chronic pain; G89.29 - Other chronic pain Annotation/Comment:: Right shoulder pain that is chronic control with current medications no changes (2) Chronic lumbar pain SNOMED Code(s): 527938757 Code(s): M54.5 - LOW BACK PAIN; G89.29 - OTHER CHRONIC PAIN Status: Acute Current Visit: Yes Qualifiers: Back pain laterality: midline Annotation/Comment:: Chronic pain on lower back under sensible control to patient (3) Sleep apnea, organic SNOMED Code(s): 17586696 Code(s): G47.30 - SLEEP APNEA, UNSPECIFIED Status: Acute Current Visit: Yes Annotation/Comment:: Patient had hypoxia today saturations going down to the 70s on room air d-dimer elevated 2340 will proceed with CAT scan of the lungs rule out pulmonary embolus (4) PTSD (post-traumatic stress disorder) SNOMED Code(s): 48365871 Code(s): F43.10 - POST-TRAUMATIC STRESS DISORDER, UNSPECIFIED Status: Acute Current Visit: Yes (5) Alcohol abuse SNOMED Code(s): 15435883 Code(s): F10.10 - ALCOHOL ABUSE, UNCOMPLICATED Status: Acute Current Visit: Yes Annotation/Comment:: History of chronic alcohol use with elevated enzymes denies pain at this time - Problem List Review Problem List Initiated/Reviewed/Updated: Yes - My Orders Last 24 Hours: My Active Orders 06/29/17 12:58 Chest 2V [CR] Routine 06/29/17 15:20 Ang Chest [CT] Routine 06/29/17 16:55 EKG Documentation Completion [RC] ASDIRECTED 06/29/17 19:00 traMADol [Ultram] 50 mg PO Q4H PRN 06/29/17 20:00 Divalproex Sodium [Depakote ER] 1,500 mg PO BEDTIME Prazosin [Minpress] 1 mg PO BEDTIME Remove Patch 1 ea TRDERM Q24H traZODone 150 mg PO BEDTIME 06/29/17 23:45 Sodium Chloride 0.9% [Saline Flush] 10 ml FLUSH ASDIRECTED 06/30/17 08:00 Sodium Chloride 0.9% [Saline Flush] 10 ml FLUSH Q12HR 06/30/17 11:13 OCCULT BLOOD SCREEN [OP] Routine - Plan Plan:: At this time discussed with patient will transfer to [place] for workup of COPD and sleep apnea and hypoxia and if needed the rectal bleeding this is stable at this time
--- NOTE | 2017-06-30 11:40 | PCM.DCSUM1 ---
Discharge Summary - Hospital Course Free Text/Narrative:: Patient admitted secondary to trauma code for observation during the admission it was noted that patient had hypoxia and after the CTA had chest pressure this was worked up with TROPONINS negative EKG no changes at this time it was also noted that he had rectal bleeding described as 3 or 4 drops of red blood in the toilet serial hemoglobins were obtained which showed the bleeding was stable with a hemoglobin of 13.7 this morning this dropped 4 g since admission at this time we are concerned with hypoxia while awake and possible COPD we'll transfer to [facility] for workup discussed with the JANETH Elkins who agreed. - Discharge Data Discharge Date: 06/30/17 Discharge Disposition: DC/Tfer to Acute Hospital 02 Condition: Good - Discharge Diagnosis/Problem(s) (1) Right shoulder pain SNOMED Code(s): 36069338 ICD Code: M25.511 - PAIN IN RIGHT SHOULDER Status: Acute Current Visit: Yes Problem Details: Right shoulder pain that is chronic control with current medications no changes Qualifiers: Chronicity: chronic Qualified Code(s): M25.511 - Pain in right shoulder; G89.29 - Other chronic pain; G89.29 - Other chronic pain (2) Chronic lumbar pain SNOMED Code(s): 222559292 ICD Code: M54.5 - LOW BACK PAIN; G89.29 - OTHER CHRONIC PAIN Status: Acute Current Visit: Yes Problem Details: Chronic pain on lower back under sensible control to patient Qualifiers: Back pain laterality: midline (3) Sleep apnea, organic SNOMED Code(s): 11044198 ICD Code: G47.30 - SLEEP APNEA, UNSPECIFIED Status: Acute Current Visit: Yes Problem Details: Patient had hypoxia today saturations going down to the 70s on room air d-dimer elevated 2340 will proceed with CAT scan of the lungs rule out pulmonary embolus (4) PTSD (post-traumatic stress disorder) SNOMED Code(s): 72362772 ICD Code: F43.10 - POST-TRAUMATIC STRESS DISORDER, UNSPECIFIED Status: Acute Current Visit: Yes (5) Alcohol abuse SNOMED Code(s): 49769534 ICD Code: F10.10 - ALCOHOL ABUSE, UNCOMPLICATED Status: Acute Current Visit: Yes Problem Details: History of chronic alcohol use with elevated enzymes denies pain at this time - Patient Summary/Data Consults: Pulmonary medicine and GI - Patient Instructions Diet: Heart Healthy Diet Activity: As Tolerated Driving: Do Not Drive (No driving untill hypoxia is controlled) Showering/Bathing: May Shower - Discharge Plan Home Medications: Home Meds Citalopram Hydrobromide [Celexa] 40 mg PO DAILY 06/29/17 [History] Cyclobenzaprine [Flexeril] 10 mg PO TID PRN 06/29/17 [History] Divalproex Sodium [Divalproex Sodium ER] 1,500 mg PO BEDTIME 06/29/17 [History] Ibuprofen 800 mg PO TID PRN 06/29/17 [History] Lidocaine 5% [Lidoderm 5%] 700 mg TOP DAILY 06/29/17 [History] Prazosin [Minpress] 1 mg PO BEDTIME 06/29/17 [History] Propranolol HCl [Propranolol] 80 mg PO DAILY 06/29/17 [History] traZODone HCl [Trazodone HCl] 150 mg PO BEDTIME 06/29/17 [History] Patient Handouts: Head Injury, Adult, Tissue Adhesive Wound Care, [id number] Forms: ED Department Discharge - Discharge Summary/Plan Comment DC Time >30 min.: Yes Discharge Summary/Plan Comment: At this time patient will be sent to a higher level care [facility] in [place] no room or beds available at the [facility] spoke with Severo who agreed on transfer. - Patient Data Vitals - Most Recent: Last Vital Signs Temp 96.5 F 06/30/17 11:23 Pulse 64 06/30/17 11:23 Resp 18 06/30/17 04:44 BP 107/70 06/30/17 11:23 Pulse Ox 96 06/30/17 11:23 Weight - Most Recent: 185 lb 0.014 oz I&O - Last 24 hours: Intake & Output 06/29/17 06/30/17 06/30/17 22:59 06:59 14:59 Intake Total 3488 3292 360 Output Total 550 1000 Balance 2938 2292 360 Lab Results - Last 24 hrs: Laboratory Results - last 24 hr 06/29/17 06/29/17 06/29/17 Range/Units 17:00 17:00 22:30 WBC 5.5 5.2 (4.0-10.2) K/uL RBC 4.11 L 3.94 L (4.33-5.41) M/uL Hgb 14.2 D 13.5 (13.1-16.8) g/dL Hct 42.8 41.1 (39.0-49.0) % MCV 104.1 H 104.3 H (84.0-98.0) fL MCH 34.5 H 34.3 H (28.2-33.3) pg MCHC 33.2 32.8 (31.7-36.0) g/dL RDW 12.8 12.5 (11.2-14.1) % Plt Count 90 L 80 L (150-350) K/uL Neut % (Auto) 65.9 62.3 (45.0-80.0) % Lymph % (Auto) 25.9 28.8 (10.0-50.0) % [place] % (Auto) 6.7 7.3 (2.0-14.0) % Eos % (Auto) 1.3 1.4 (0.0-5.0) % Baso % (Auto) 0.2 0.2 (0.0-2.0) % Neut # (Auto) 3.62 3.23 (1.40-7.00) K/uL Lymph # (Auto) 1.42 1.49 (0.50-3.50) K/uL [place] # (Auto) 0.37 0.38 (0.00-1.00) K/uL Eos # (Auto) 0.07 0.07 (0.00-0.50) K/uL Baso # (Auto) 0.01 0.01 (0.00-0.20) K/uL Sodium 137 (136-145) mmol/L Potassium 3.5 (3.5-5.1) mmol/L Chloride 101 (98-107) mmol/L Carbon Dioxide 26.7 (21.0-32.0) mmol/L BUN 9 (7-18) mg/dL Creatinine 0.58 (0.51-1.17) mg/dL Est Cr Clr Drug Dosing 157.82 mL/min Estimated GFR (MDRD) > 60 mL/min Glucose 92 (74-106) mg/dL Calcium 8.0 L (8.5-10.1) mg/dL Troponin I 0.000 (0.000-0.056) ng/mL 06/29/17 06/30/17 06/30/17 Range/Units 22:30 07:15 07:15 WBC 4.1 (4.0-10.2) K/uL RBC 4.00 L (4.33-5.41) M/uL Hgb 13.7 (13.1-16.8) g/dL Hct 42.0 (39.0-49.0) % MCV 105.0 H (84.0-98.0) fL MCH 34.3 H (28.2-33.3) pg MCHC 32.6 (31.7-36.0) g/dL RDW 12.4 (11.2-14.1) % Plt Count 70 L (150-350) K/uL Neut % (Auto) 53.4 (45.0-80.0) % Lymph % (Auto) 37.8 (10.0-50.0) % [place] % (Auto) 6.4 (2.0-14.0) % Eos % (Auto) 2.2 (0.0-5.0) % Baso % (Auto) 0.2 (0.0-2.0) % Neut # (Auto) 2.17 (1.40-7.00) K/uL Lymph # (Auto) 1.54 (0.50-3.50) K/uL [place] # (Auto) 0.26 (0.00-1.00) K/uL Eos # (Auto) 0.09 (0.00-0.50) K/uL Baso # (Auto) 0.01 (0.00-0.20) K/uL Sodium (136-145) mmol/L Potassium (3.5-5.1) mmol/L Chloride (98-107) mmol/L Carbon Dioxide (21.0-32.0) mmol/L BUN (7-18) mg/dL Creatinine (0.51-1.17) mg/dL Est Cr Clr Drug Dosing mL/min Estimated GFR (MDRD) mL/min Glucose (74-106) mg/dL Calcium (8.5-10.1) mg/dL Troponin I 0.000 0.002 (0.000-0.056) ng/mL Med Orders - Current: Current Medications Albuterol/Ipratropium (Duoneb 3.0-0.5 Mg/3 Ml) 3 ml NEB Q4HRRT [facility] Last Admin: 06/30/17 11:33 Dose: 3 ml Citalopram Hydrobromide (Celexa) 40 mg PO DAILY [facility] Last Admin: 06/30/17 09:00 Dose: 40 mg Cyclobenzaprine HCl (Flexeril) 10 mg PO TID PRN PRN Reason: muscle spasms Last Admin: 06/30/17 10:33 Dose: 10 mg Divalproex Sodium (Depakote Er) 1,500 mg PO BEDTIME [facility] Last Admin: 06/29/17 20:03 Dose: 1,500 mg Folic Acid (Folic Acid) 1 mg PO DAILY [facility] Last Admin: 06/30/17 09:00 Dose: 1 mg Sodium Chloride (Normal Saline) 1,000 mls @ 150 mls/hr IV ASDIRECTED [facility] Last Admin: 06/30/17 08:58 Dose: 150 mls/hr Ibuprofen (Motrin) 800 mg PO TID PRN PRN Reason: Pain Last Admin: 06/30/17 01:10 Dose: 800 mg Lidocaine (Lidoderm 5%) 700 mg TOP DAILY [facility] Last Admin: 06/30/17 08:55 Dose: 700 mg Miscellaneous Information (Remove Patch) 1 ea TRDERM Q24H [facility] Last Admin: 06/29/17 20:05 Dose: 1 ea Nicotine (Habitrol) 21 mg TRDERM DAILY [facility] Last Admin: 06/30/17 08:57 Dose: 21 mg Prazosin HCl (Minpress) 1 mg PO BEDTIME [facility] Last Admin: 06/29/17 20:05 Dose: 1 mg Propranolol HCl (Inderal La) 80 mg PO DAILY [facility] Last Admin: 06/30/17 09:00 Dose: 80 mg Sodium Chloride (Saline Flush) 10 ml FLUSH Q12HR JENNY Sodium Chloride (Saline Flush) 10 ml FLUSH ASDIRECTED [facility] Tramadol HCl (Ultram) 50 mg PO Q4H PRN PRN Reason: pain Last Admin: 06/30/17 09:14 Dose: 50 mg Trazodone HCl (Trazodone) 150 mg PO BEDTIME [facility] Last Admin: 06/29/17 20:04 Dose: 150 mg Discontinued Medications Albuterol (Proventil Neb Soln) Confirm Administered Dose 2.5 mg .ROUTE .STK-MED ONE Stop: 06/29/17 03:32 Last Admin: 06/29/17 04:33 Dose: Not Given Albuterol (Proventil Neb Soln) 2.5 mg .ROUTE .STK-MED ONE Stop: 06/29/17 02:05 Diphtheria/Tetanus/Acell Pertussis (Adacel) Confirm Administered Dose 0.5 ml .ROUTE .STK-MED ONE Stop: 06/29/17 03:04 Last Admin: 06/29/17 04:33 Dose: Not Given Hydromorphone HCl (Dilaudid) Confirm Administered Dose 1 mg .ROUTE .STK-MED ONE Stop: 06/29/17 02:03 Last Admin: 06/29/17 04:32 Dose: Not Given Hydromorphone HCl (Dilaudid) Confirm Administered Dose 1 mg .ROUTE .STK-MED ONE Stop: 06/29/17 02:41 Last Admin: 06/29/17 04:32 Dose: Not Given Hydromorphone HCl (Dilaudid) Confirm Administered Dose 1 mg .ROUTE .STK-MED ONE Stop: 06/29/17 04:22 Last Admin: 06/29/17 04:33 Dose: Not Given Hydromorphone HCl (Dilaudid) 1 mg IVPUSH Q4H PRN PRN Reason: Pain (moderate 4-6) Last Admin: 06/29/17 10:25 Dose: 1 mg Hydromorphone HCl (Dilaudid) 0.5 mg .ROUTE .STK-MED ONE Stop: 06/29/17 02:05 Hydromorphone HCl (Dilaudid) 1 mg .ROUTE .STK-MED ONE Stop: 06/29/17 02:05 Hydromorphone HCl (Dilaudid) 1 mg .ROUTE .STK-MED ONE Stop: 06/29/17 02:05 Sodium Chloride (Normal Saline) 1,000 mls @ as directed IV .STK-MED ONE Stop: 06/29/17 02:51 Influenza Virus Vaccine (Fluzone Quad [id number]) 60 mcg IM .ONCE ONE Stop: 06/29/17 11:01 Last Admin: 06/29/17 11:07 Dose: 60 mcg Iopamidol (Isovue-370 (76%)) 100 ml IVPUSH ONETIME ONE Stop: 06/29/17 15:46 Last Admin: 06/29/17 16:02 Dose: 100 ml Nicotine (Habitrol) 21 mg TRDERM DAILY [facility] Ondansetron HCl (Zofran) Confirm Administered Dose 4 mg .ROUTE .STK-MED ONE Stop: 06/29/17 02:02 Last Admin: 06/29/17 04:32 Dose: Not Given Ondansetron HCl (Zofran) 4 mg .ROUTE .STK-MED ONE Stop: 06/29/17 02:05 Pneumococcal 13-Valent Conj Vacc (Prevnar 13) 0.5 ml IM .ONCE ONE Stop: 06/29/17 11:01 Last Admin: 06/29/17 11:09 Dose: 0.5 ml Thiamine HCl (Vitamin B-1) 100 mg PO ONETIME ONE Stop: 06/29/17 04:32 Last Admin: 06/29/17 05:10 Dose: 100 mg Tramadol HCl (Ultram) 50 mg PO Q4H [facility] Last Admin: 06/29/17 16:54 Dose: Not Given *Q Meaningful Use (DIS) - VTE *Q VTE Criteria *Q: - Stroke *Q Stroke Criteria *Q: - AMI *Q AMI Criteria *Q:
== END 2017-06-30 12:35 ==
LOC: LL.ED 01:54 → LL.MS 04:12
PROVIDERS: ADMIT Family Medicine; ATTEND Family Medicine
DX: G89.29 Other chronic pain (principal); M25.511 Pain in right shoulder; M54.5 Low back pain; G47.30 Sleep apnea, unspecified; F43.10 Post-traumatic stress disorder, unspecified; F10.10 Alcohol abuse, uncomplicated; Z79.899 Other long term (current) drug therapy; W10.9XXA Fall (on) (from) unspecified stairs and steps, initial encounter; F17.210 Nicotine dependence, cigarettes, uncomplicated
CPT/HCPCS: 36415; 70450; 71045; 71046; 71275; 72125; 72131; 73030; 80048; 80053; 80164; 81001; 82270; 82272; 82550; 82553; 83605; 84484; 85025; 85379; 85610; 85730; 90471; 93005; 94640; 94761; 96361; 96374; 96375; 96376; 99291; A9270; G0390; G0480; J1170; J2405; J7030; J7620; Q9967; 90670; 90686; 99217; 99220; G0008; G0009; G0378

== ENCOUNTER 2017-10-07 00:31 | Inpatient (IN) | payer OTHER ==
--- NOTE | 2017-10-07 00:55 | EDM.PDOC ---
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 pressures were stable in the emergency room Qualifiers: Hypertension type: essential hypertension Qualified Code(s): I10 - Essential (primary) hypertension (14) Osteoarthritis SNOMED Code(s): 523668094 Code(s): M19.90 - UNSPECIFIED OSTEOARTHRITIS, UNSPECIFIED SITE Status: Chronic Priority: Medium Current Visit: Yes Annotation/Comment:: Stable by history Qualifiers: Osteoarthritis location: multiple joints Osteoarthritis type: primary Qualified Code(s): M15.0 - Primary generalized (osteo)arthritis - Problem List Review Problem List Initiated/Reviewed/Updated: Yes - My Orders Last 24 Hours: My Active Orders 10/07/17 00:48 Chest 2V [CR] Urgent 10/07/17 00:49 Cardiac Monitoring [RC] . DIRECTED Peripheral IV Care [RC] . DIRECTED Sodium Chloride 0.9% [Saline Flush] 10 ml FLUSH ASDIRECTED PRN Peripheral IV Insertion Adult [OM.PC] Routine 10/07/17 00:50 Obtain Past Medical Record [OM.PC] Routine 10/07/17 00:53 CULTURE BLOOD [BC] Stat Blood Culture x2 Reflex Set [OM.PC] Urgent 10/07/17 00:54 Oxygen Therapy, ED [RC] CONTINUOUS PROLACTIN [REF] Stat 10/07/17 01:05 CULTURE BLOOD [BC] Stat - Assessment/Plan Admission H&P: Please use this note as an admission H&P Last 24 Hours: My Active Orders 10/07/17 00:48 Chest 2V [CR] Urgent 10/07/17 00:49 Cardiac Monitoring [RC] . DIRECTED Peripheral IV Care [RC] . DIRECTED Sodium Chloride 0.9% [Saline Flush] 10 ml FLUSH ASDIRECTED PRN Peripheral IV Insertion Adult [OM.PC] Routine 10/07/17 00:50 Obtain Past Medical Record [OM.PC] Routine 10/07/17 00:53 CULTURE BLOOD [BC] Stat Blood Culture x2 Reflex Set [OM.PC] Urgent 10/07/17 00:54 Oxygen Therapy, ED [RC] CONTINUOUS PROLACTIN [REF] Stat 10/07/17 01:05 CULTURE BLOOD [BC] Stat Assessment:: As above Plan: As above. Extensive precautions were given to the patient, who is in agreement with the treatment plan.
[2017-10-07] MEDS: Sodium Chloride 0.9% 10 ML Syringe FLUSH PRN ×3 (01:22→15:50)
[2017-10-07 01:40] LABS: CHLORIDE,CL 97 mmol/L (98-107); SODIUM,NA 136 mmol/L (136-145)
[2017-10-07] MEDS ORDERED: Potassium Chloride 20 MEQ Tab.ER PO ONE (02:52)
[2017-10-07] MEDS ORDERED: Albuterol/Ipratropium 3.0-0.5 MG/3 ML Neb Soln NEB PRN (02:54)
[2017-10-07] MEDS ORDERED: Albuterol 0.083% 2.5 MG/3 ML Neb Soln INH PRN (02:54)
[2017-10-07] MEDS: levETIRAcetam 500 MG in Sodium Chloride 0.9% 100 ML IV SCH ×2 (03:28→15:30)
[2017-10-07] MEDS: Ibuprofen 400 MG Tab PO PRN ×2 (03:41→11:11)
[2017-10-07] MEDS: Cyclobenzaprine 10 MG Tab PO PRN ×3 (03:42→17:26)
[2017-10-07] MEDS: Folic Acid 1 MG Tab PO SCH (07:53)
[2017-10-07] MEDS: Lidocaine 5% 700 MG Patch TOP SCH ×2 (07:54→15:35)
[2017-10-07] MEDS: Citalopram 20 MG Tab PO SCH (07:54)
[2017-10-07] MEDS ORDERED: Potassium Chloride 20 MEQ Tab.ER PO SCH (08:00)
[2017-10-07] MEDS ORDERED: Nicotine 7 MG/24 Hr Patch TOP SCH (08:00)
[2017-10-07] MEDS: Potassium Chloride 20 MEQ Tab.ER PO SCH ×2 (11:06→17:22)
--- NOTE | 2017-10-07 15:20 | PCM.SN ---
- Free Text/Narrative Note: A bed is still not available at the [facility] in [place]. Continue care in this facility. This morning's blood work was reviewed with some hyperlipidemia noted. Vital signs are overall stable, although somewhat elevated this afternoon. No return of his seizure activity with current IV Keppra therapy. Neurological checks have been stable. Waldemar De La Vega M.D., at the [facility], will round on the patient tomorrow. Possible hospital discharge with close follow-up by the [facility] in [place], including recommended Keppra level in about 10-14 days. Once again patient should have at least a six-month driving restrictions until released by his neurologist. Attempts are being made today to discharge patient with home O2 at 2 L/m by nasal cannula on a continuous basis with titration with activity to be conducted tomorrow prior to discharge. Home O2 can hopefully be obtained through the [facility] in [place]. In addition, secondary to his chronic hypoxia strong consideration for an echocardiogram, if this has not already been conducted, to assess possible pulmonary hypertension. Blood work is already scheduled to be repeated tomorrow. Patient counseled today concerning above treatment plan. Note that the patient's nasal sinal surgery about 2 weeks ago was secondary to refractory nasal bleeding by his 's history. Patient is still on the waiting list for admission at the [facility] in [place]. 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 Note moderate resting tremor during brief rounds this afternoon, however no direct evidence of DVTs. Initiate low-dose Ativan therapy both as DVT and seizure prophylaxis. Dr. De La Vega was updated concerning patient's care this afternoon.
[2017-10-07] MEDS: Nicotine 21 MG/24 Hr Patch TRDERM SCH (15:35)
[2017-10-07] MEDS: LORazepam 0.5 MG Tab PO SCH ×2 (15:50→17:22)
[2017-10-07] MEDS ORDERED: REMOVE LIDOCAINE TRDERM SCH (19:00)
[2017-10-07] MEDS ORDERED: REMOVE TRDERM SCH (19:00)
[2017-10-07] MEDS ORDERED: traZODone 50 MG Tab PO SCH (20:00)
[2017-10-07] MEDS ORDERED: Prazosin 1 MG Cap PO SCH (20:00)
[2017-10-08] MEDS: Ibuprofen 400 MG Tab PO PRN (01:10)
[2017-10-08] MEDS: Cyclobenzaprine 10 MG Tab PO PRN (01:35)
[2017-10-08] MEDS: Sodium Chloride 0.9% 10 ML Syringe FLUSH PRN (03:13)
[2017-10-08] MEDS: levETIRAcetam 500 MG in Sodium Chloride 0.9% 100 ML IV SCH (03:13)
[2017-10-08 07:07] VITALS: BP 123/87
[2017-10-08] MEDS: Lidocaine 5% 700 MG Patch TOP SCH ×2 (07:25)
[2017-10-08] MEDS: Nicotine 21 MG/24 Hr Patch TRDERM SCH (07:25)
[2017-10-08] MEDS: Potassium Chloride 20 MEQ Tab.ER PO SCH ×2 (07:27→11:52)
[2017-10-08] MEDS: Citalopram 20 MG Tab PO SCH (07:28)
[2017-10-08] MEDS: LORazepam 0.5 MG Tab PO SCH ×2 (07:28→11:53)
[2017-10-08] MEDS: Folic Acid 1 MG Tab PO SCH (07:28)
[2017-10-08 07:38] LABS: CHLORIDE,CL 103 mmol/L (98-107); SODIUM,NA 139 mmol/L (136-145)
[2017-10-08] MEDS ORDERED: Remove Patch NICOTINE PATCH TRDERM SCH (08:00)
--- NOTE | 2017-10-08 12:14 | PCM.DCSUM1 ---
Discharge Summary - Discharge Data Discharge Date: 10/08/17 Discharge Disposition: Home, Self-Care 01 Condition: Good - Discharge Diagnosis/Problem(s) (1) Grand mal seizure disorder SNOMED Code(s): 624905891 ICD Code: G40.409 - OTH GENERALIZED EPILEPSY, NOT INTRACTABLE, W/O STAT EPI Status: Acute Priority: High Current Visit: No Onset Date: 10/07/17 Problem Details: Patient doing better we will sent home on Keppra 500 mg twice a day patient will follow up with neurologist at the [facility] with possible further workup. - Patient Summary/Data Hospital Course: No further seizure activity patient does admit to our prior to seizure doing well now will send home on his regular medication plus Keppra 500 mg twice a day. His valproic acid will be held - Patient Instructions Diet: Heart Healthy Diet Fluid Restriction: No restriction Activity: As Tolerated (No driving for 6 months no lifting over 10 pounds) Driving: Do Not Drive Showering/Bathing: May Shower - Discharge Plan Home Medications: Home Meds Citalopram Hydrobromide [Celexa] 20 mg PO DAILY 06/29/17 [History] Cyclobenzaprine [Flexeril] 10 mg PO TID PRN 06/29/17 [History] Divalproex Sodium [Divalproex Sodium ER] 1,500 mg PO BEDTIME 06/29/17 [History] Ibuprofen 800 mg PO TID PRN 06/29/17 [History] Lidocaine 5% [Lidoderm 5%] 700 mg TOP DAILY 06/29/17 [History] Prazosin [Minpress] 1 mg PO BEDTIME 06/29/17 [History] traZODone HCl [Trazodone HCl] 100 mg PO BEDTIME 06/29/17 [History] Nicotine Polacrilex [Nicotine Lozenge] 2 mg BC Q2HR PRN 10/07/17 [History] Nicotine [Nicoderm CQ] 1 patch TD DAILY 10/07/17 [History] Sildenafil Citrate [Sildenafil] 100 mg PO ASDIRECTED PRN 10/07/17 [History] Forms: ED Department Discharge Referrals: PCP,None [Primary Care Provider] - - Discharge Summary/Plan Comment DC Time >30 min.: Yes Discharge Summary/Plan Comment: Chart and orders reviewed at this time I agree with discharging him home today I will go ahead and discharge him as needed [facility] with [facility] thank you very much this is Dr. De La Vega dictating - General Info Functional Status: Reports: Tolerating Diet, Ambulating - Review of Systems General: Reports: No Symptoms HEENT: Reports: No Symptoms Pulmonary: Reports: No Symptoms Cardiovascular: Reports: No Symptoms Gastrointestinal: Reports: No Symptoms Genitourinary: Reports: No Symptoms Musculoskeletal: Reports: No Symptoms Skin: Reports: No Symptoms Neurological: Reports: Seizure (Admitted secondary to seizures valproic acid level was which over Keppra 500 twice a day this may need to be adjusted) Psychiatric: Reports: No Symptoms - Patient Data Vitals - Most Recent: Last Vital Signs Temp 97.4 F 10/08/17 07:06 Pulse 80 10/08/17 07:06 Resp 20 10/08/17 07:06 BP 123/87 10/08/17 07:06 Pulse Ox 94 L 10/08/17 07:06 Weight - Most Recent: 152 lb 9.6 oz I&O - Last 24 hours: Intake & Output 10/07/17 10/08/17 10/08/17 22:59 06:59 14:59 Intake Total 610 540 360 Output Total 0 100 Balance 610 440 360 Lab Results - Last 24 hrs: Laboratory Results - last 24 hr 10/07/17 10/07/17 10/07/17 Range/Units 01:20 07:28 07:28 WBC (4.0-10.2) K/uL RBC (4.33-5.41) M/uL Hgb (13.1-16.8) g/dL Hct (39.0-49.0) % MCV (84.0-98.0) fL MCH (28.2-33.3) pg MCHC (31.7-36.0) g/dL RDW (11.2-14.1) % Plt Count (150-350) K/uL Neut % (Auto) (45.0-80.0) % Lymph % (Auto) (10.0-50.0) % [place] % (Auto) (2.0-14.0) % Eos % (Auto) (0.0-5.0) % Baso % (Auto) (0.0-2.0) % Neut # (Auto) (1.40-7.00) K/uL Lymph # (Auto) (0.50-3.50) K/uL [place] # (Auto) (0.00-1.00) K/uL Eos # (Auto) (0.00-0.50) K/uL Baso # (Auto) (0.00-0.20) K/uL Sodium (136-145) mmol/L Potassium (3.5-5.1) mmol/L Chloride (98-107) mmol/L Carbon Dioxide (21.0-32.0) mmol/L BUN (7-18) mg/dL Creatinine (0.51-1.17) mg/dL Est Cr Clr Drug Dosing mL/min Estimated GFR (MDRD) mL/min Glucose (74-106) mg/dL Lactic Acid (0.4-2.0) mmol/L Calcium (8.5-10.1) mg/dL Total Bilirubin (0.2-1.0) mg/dL AST (15-37) U/L ALT (12-78) U/L Alkaline Phosphatase (46-116) IU/L Total Protein (6.4-8.2) g/dL Albumin (3.4-5.0) g/dL Triglycerides (30-150) mg/dL Cholesterol (100-200) mg/dL LDL Cholesterol, Calc (0-100) mg/dL HDL Cholesterol (40-60) mg/dL Folate 18.3 (8.6-58.9) ng/mL Prolactin 5.2 (2.6-13.1) ng/mL Urine Opiates Screen (NEGATIVE) Ur Barbiturates Screen (NEGATIVE) Ur Tricyclics Screen (NEGATIVE) Ur Phencyclidine Scrn (NEGATIVE) Ur Amphetamine Screen (NEGATIVE) U Methamphetamines Scrn (NEGATIVE) U Benzodiazepines Scrn (NEGATIVE) U Cocaine Metab Screen (NEGATIVE) U Marijuana (THC) Screen (NEGATIVE) 10/08/17 10/08/17 10/08/17 Range/Units 01:30 06:53 06:53 WBC 4.8 (4.0-10.2) K/uL RBC 4.89 (4.33-5.41) M/uL Hgb 17.0 H (13.1-16.8) g/dL Hct 51.0 H (39.0-49.0) % MCV 104.3 H D (84.0-98.0) fL MCH 34.8 H (28.2-33.3) pg MCHC 33.3 (31.7-36.0) g/dL RDW 14.1 (11.2-14.1) % Plt Count 46 L* (150-350) K/uL Neut % (Auto) 50.1 (45.0-80.0) % Lymph % (Auto) 38.3 (10.0-50.0) % [place] % (Auto) 9.1 (2.0-14.0) % Eos % (Auto) 2.1 (0.0-5.0) % Baso % (Auto) 0.4 (0.0-2.0) % Neut # (Auto) 2.38 (1.40-7.00) K/uL Lymph # (Auto) 1.82 (0.50-3.50) K/uL [place] # (Auto) 0.43 (0.00-1.00) K/uL Eos # (Auto) 0.10 (0.00-0.50) K/uL Baso # (Auto) 0.02 (0.00-0.20) K/uL Sodium 139 (136-145) mmol/L Potassium 3.7 (3.5-5.1) mmol/L Chloride 103 (98-107) mmol/L Carbon Dioxide 30.8 (21.0-32.0) mmol/L BUN 13 (7-18) mg/dL Creatinine 0.66 (0.51-1.17) mg/dL Est Cr Clr Drug Dosing 139.83 mL/min Estimated GFR (MDRD) > 60 mL/min Glucose 107 H (74-106) mg/dL Lactic Acid (0.4-2.0) mmol/L Calcium 8.8 (8.5-10.1) mg/dL Total Bilirubin 0.6 (0.2-1.0) mg/dL AST 35 (15-37) U/L ALT 39 (12-78) U/L Alkaline Phosphatase 92 (46-116) IU/L Total Protein 6.6 (6.4-8.2) g/dL Albumin 3.3 L (3.4-5.0) g/dL Triglycerides (30-150) mg/dL Cholesterol (100-200) mg/dL LDL Cholesterol, Calc (0-100) mg/dL HDL Cholesterol (40-60) mg/dL Folate (8.6-58.9) ng/mL Prolactin (2.6-13.1) ng/mL Urine Opiates Screen Negative (NEGATIVE) Ur Barbiturates Screen Negative (NEGATIVE) Ur Tricyclics Screen Positive H (NEGATIVE) Ur Phencyclidine Scrn Negative (NEGATIVE) Ur Amphetamine Screen Negative (NEGATIVE) U Methamphetamines Scrn Negative (NEGATIVE) U Benzodiazepines Scrn Positive H (NEGATIVE) U Cocaine Metab Screen Negative (NEGATIVE) U Marijuana (THC) Screen Negative (NEGATIVE) SHELL Results - Last 24 hrs: Microbiology 10/07/17 01:20 Aerobic Blood Culture - Preliminary Blood - Venous - Lab Draw NO GROWTH AFTER 1 DAY Anaerobic Blood Culture - Preliminary NO GROWTH AFTER 1 DAY 10/07/17 01:05 Aerobic Blood Culture - Preliminary Blood - Venous NO GROWTH AFTER 1 DAY Anaerobic Blood Culture - Preliminary NO GROWTH AFTER 1 DAY Med Orders - Current: Current Medications Albuterol (Proventil Neb Soln) 2.5 mg INH Q2H PRN PRN Reason: SHORTNESS OF BREATH Albuterol/Ipratropium (Duoneb 3.0-0.5 Mg/3 Ml) 3 ml NEB Q4HRRT PRN PRN Reason: Dyspnea Citalopram Hydrobromide (Celexa) 20 mg PO DAILY [facility] Last Admin: 10/08/17 07:28 Dose: 20 mg Cyclobenzaprine HCl (Flexeril) 10 mg PO TID PRN PRN Reason: muscle spasms Last Admin: 10/08/17 01:35 Dose: 10 mg Folic Acid (Folic Acid) 1 mg PO DAILY [facility] Last Admin: 10/08/17 07:28 Dose: 1 mg Levetiracetam 500 mg/ Sodium (Chloride) 105 mls @ 400 mls/hr IV Q12H [facility] Last Admin: 10/08/17 03:13 Dose: 400 mls/hr Ibuprofen (Motrin) 800 mg PO TID PRN PRN Reason: Pain Last Admin: 10/08/17 01:10 Dose: 800 mg Lidocaine (Lidoderm 5%) 700 mg TOP DAILY [facility] Last Admin: 10/08/17 07:25 Dose: 700 mg Lidocaine (Lidoderm 5%) 700 mg TOP DAILY [facility] Last Admin: 10/08/17 07:25 Dose: 700 mg Lorazepam (Ativan) 0.5 mg PO TID [facility] Last Admin: 10/08/17 11:53 Dose: 0.5 mg Miscellaneous Information (Remove Patch) 1 ea TRDERM DAILY@1900 [facility] Last Admin: 10/07/17 20:00 Dose: 1 ea Miscellaneous Information (Remove Patch) 1 ea TRDERM DAILY [facility] Last Admin: 10/08/17 07:29 Dose: 1 ea Miscellaneous Information (Remove Patch) 1 ea TRDERM DAILY@1900 [facility] Last Admin: 10/08/17 03:20 Dose: 1 ea Nicotine (Habitrol) 21 mg TRDERM DAILY [facility] Last Admin: 10/08/17 07:25 Dose: 21 mg Potassium Chloride (Klor-Con M20) 20 meq PO TID [facility] Last Admin: 10/08/17 11:52 Dose: 20 meq Prazosin HCl (Minpress) 1 mg PO BEDTIME [facility] Last Admin: 10/07/17 19:37 Dose: 1 mg Sodium Chloride (Saline Flush) 10 ml FLUSH ASDIRECTED PRN PRN Reason: Keep Vein Open Last Admin: 10/08/17 03:13 Dose: 10 ml Trazodone HCl (Trazodone) 100 mg PO BEDTIME [facility] Last Admin: 10/07/17 19:37 Dose: 100 mg Discontinued Medications Nicotine (Habitrol) 7 mg TOP DAILY [facility] Last Admin: 10/07/17 07:54 Dose: 7 mg Potassium Chloride (Klor-Con M20) 20 meq PO TID [facility] Potassium Chloride (Klor-Con M20) 40 meq PO ONETIME ONE Stop: 10/07/17 02:53 Last Admin: 10/07/17 03:26 Dose: 40 meq - Exam General: Reports: Alert, Oriented HEENT: Reports: Pupils Equal, Pupils Reactive, EOMI, Mucous Membr. Moist/[place] Neck: Reports: Supple Lungs: Reports: Clear to Auscultation, Normal Respiratory Effort Cardiovascular: Reports: Regular Rate, Regular Rhythm GI/Abdominal Exam: Normal Bowel Sounds, Soft, Non-Tender, No Organomegaly, No Distention, No Abnormal Bruit, No Mass, Pelvis Stable (Male) Exam: No Hernia, Normal Inspection, Normal Prostate, Circumcised Rectal (Males) Exam: Normal Exam, Normal Rectal Tone, Prostate Normal Back Exam: Reports: Normal Inspection, Full Range of Motion Extremities: Normal Inspection, Normal Range of Motion, Non-Tender, No Pedal Edema, Normal Capillary Refill Wound/Incisions: Reports: Healing Well Neurological: Reports: No New Focal Deficit, Normal Gait, Normal Speech, Strength Equal Bilateral, Sensation Intact, Cranial Nerves Intact Psy/Mental Status: Reports: Alert, Normal Affect, Normal Mood Physical Findings Comments:: Plan is to DC [facility]
== END 2017-10-08 13:15 | disposition home or self-care (01) | DRG 101 ==
LOC: LL.ED 00:31 → LL.MS 02:23
PROVIDERS: ADMIT Family Medicine; ATTEND Family Medicine
DX: G40.409 Other generalized epilepsy and epileptic syndromes, not intractable, without status epilepticus (principal); E87.2 Acidosis; R09.02 Hypoxemia; G89.29 Other chronic pain; H54.7 Unspecified visual loss; K02.9 Dental caries, unspecified; I10 Essential (primary) hypertension; G47.30 Sleep apnea, unspecified; K21.9 Gastro-esophageal reflux disease without esophagitis; R16.0 Hepatomegaly, not elsewhere classified; M51.26 Other intervertebral disc displacement, lumbar region; M25.511 Pain in right shoulder; G62.9 Polyneuropathy, unspecified; F41.9 Anxiety disorder, unspecified; F32.9 Major depressive disorder, single episode, unspecified; F43.10 Post-traumatic stress disorder, unspecified; F17.210 Nicotine dependence, cigarettes, uncomplicated; F10.20 Alcohol dependence, uncomplicated; D75.1 Secondary polycythemia; E87.6 Hypokalemia; R73.9 Hyperglycemia, unspecified; J43.1 Panlobular emphysema; S00.93XA Contusion of unspecified part of head, initial encounter; W19.XXXA Unspecified fall, initial encounter; M15.9 Polyosteoarthritis, unspecified; Z75.1 Person awaiting admission to adequate facility elsewhere; E78.5 Hyperlipidemia, unspecified; Z79.899 Other long term (current) drug therapy
CPT/HCPCS: 36415; 71046; 80053; 80061; 80164; 80305; 82746; 83036; 83605; 83735; 84146; 84443; 85025; 87040; 99285; A9270-GY; G0480; J1953; J7050

== ENCOUNTER 2017-10-15 23:08 | Emergency (ER) | payer OTHER ==
[2017-10-15 23:49] LABS: CHLORIDE,CL 100 mmol/L (98-107); SODIUM,NA 135 mmol/L (136-145)
[2017-10-15] MEDS ORDERED: Sodium Chloride 0.9% 10 ML Syringe FLUSH PRN (23:54)
[2017-10-16] MEDS: Sodium Chloride 0.9% 1,000 ML IV ONE ×2 (00:05→01:09)
[2017-10-16] MEDS: Lidocaine 2% with EPINEPHrine 1:100,000 20 ML MDV INJECT ONE (00:10)
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
[2017-10-16] MEDS: Phytonadione ORAL 2.5mg/2.5ml Soln Simple Syrup U/D PO ONE (02:04)
[2017-10-16] MEDS: Cholecalciferol (Vitamin D3) 1,000 Unit Tab PO ONE (02:07)
[2017-10-16] MEDS: Bacitracin/Neomycin/Polymyxin B Oint 0.9 GM U/D Packet TOP ONE (02:10)
[2017-10-16] MEDS: Diphtheria,Pertussis(Acell),Tetanus Vaccine 0.5 ML SDV IM ONE (02:24)
[2017-10-16 02:44] VITALS: BP 122/83
== END 2017-10-16 03:20 | disposition home or self-care (01) ==
LOC: LL.ED 23:08
DX: S01.81XA Laceration without foreign body of other part of head, initial encounter (principal); S01.01XA Laceration without foreign body of scalp, initial encounter; G40.409 Other generalized epilepsy and epileptic syndromes, not intractable, without status epilepticus; E86.0 Dehydration; D75.89 Other specified diseases of blood and blood-forming organs; E55.9 Vitamin D deficiency, unspecified; I10 Essential (primary) hypertension; J44.9 Chronic obstructive pulmonary disease, unspecified; Z87.891 Personal history of nicotine dependence; Z79.899 Other long term (current) drug therapy; Z23 Encounter for immunization; X58.XXXA Exposure to other specified factors, initial encounter
CPT/HCPCS: 12015; 36415; 70450; 80053; 80305; 81001; 82607; 83735; 84484; 85025; 90471; 90715; 93005; 93010; 96361; 96365; 99284; 99285; A9270-GY; G0480; J3475; J7030

== ENCOUNTER 2017-10-23 20:02 | Emergency (ER) | payer OTHER ==
[2017-10-23 20:52] LABS: CHLORIDE,CL 102 mmol/L (98-107); SODIUM,NA 142 mmol/L (136-145)
[2017-10-23] MEDS: Cyclobenzaprine 10 MG Tab PO ONE (21:07)
[2017-10-23] MEDS: Sodium Chloride 0.9% 1,000 ML IV ONE (21:21)
[2017-10-23] MEDS: Sodium Chloride 0.9% 10 ML Syringe FLUSH PRN (21:21)
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
[2017-10-23 22:19] VITALS: BP 122/73
[2017-10-23] MEDS: Nicotine 21 MG/24 Hr Patch TRDERM ONE (23:00)
[2017-10-23] MEDS: LORazepam 2 MG/ML SDV IVPUSH ONE (23:03)
== END 2017-10-23 23:16 ==
LOC: LL.ED 20:02
DX: G40.409 Other generalized epilepsy and epileptic syndromes, not intractable, without status epilepticus (principal); R45.850 Homicidal ideations; F10.10 Alcohol abuse, uncomplicated; E55.9 Vitamin D deficiency, unspecified; F17.210 Nicotine dependence, cigarettes, uncomplicated; I10 Essential (primary) hypertension; Z88.8 Allergy status to other drugs, medicaments and biological substances; Z79.899 Other long term (current) drug therapy
CPT/HCPCS: 36415; 80053; 80305; 81001; 85025; 96361; 96374; 99285; A9270; G0480; J2060; J7030; J7050

== ENCOUNTER 2017-11-19 21:24 | Emergency (ER) | payer OTHER, BC ==
[2017-11-19] MEDS ORDERED: levETIRAcetam Soln 500 MG/5 ML Cup PO ONE (21:34)
[2017-11-19 21:59] LABS: CHLORIDE,CL 105 mmol/L (98-107); SODIUM,NA 141 mmol/L (136-145)
[2017-11-19 22:06] VITALS: BP 118/85
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
== END 2017-11-19 22:25 | disposition home or self-care (01) ==
LOC: LL.ED 21:24
DX: G40.909 Epilepsy, unspecified, not intractable, without status epilepticus (principal); F41.9 Anxiety disorder, unspecified; R00.0 Tachycardia, unspecified; F17.210 Nicotine dependence, cigarettes, uncomplicated; I10 Essential (primary) hypertension; K21.9 Gastro-esophageal reflux disease without esophagitis; F32.9 Major depressive disorder, single episode, unspecified; F43.10 Post-traumatic stress disorder, unspecified; Z79.899 Other long term (current) drug therapy
CPT/HCPCS: 36415; 80053; 85025; 99284

== ENCOUNTER 2017-11-20 20:35 | Emergency (ER) | payer OTHER, BC ==
[2017-11-20 21:04] LABS: CHLORIDE,CL 103 mmol/L (98-107); SODIUM,NA 139 mmol/L (136-145)
[2017-11-20 21:40] VITALS: BP 137/100
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
[2017-11-20] MEDS ORDERED: levETIRAcetam 500 MG Tab PO SCH (21:45)
[2017-11-20] MEDS ORDERED: Haloperidol Lactate 5 MG/ML SDV ONE (22:03)
[2017-11-20] MEDS ORDERED: Haloperidol Lactate 5 MG/ML SDV IM ONE (22:03)
[2017-11-20] MEDS ORDERED: Sodium Chloride 0.9% 10 ML Syringe FLUSH SCH (22:14)
== END 2017-11-20 22:25 ==
LOC: LL.ED 20:35
DX: F10.10 Alcohol abuse, uncomplicated (principal)
CPT/HCPCS: 36415; 80053; 83605; 84484; 85025; 93005; 96372; 96374; 99285; A9270-GY; G0480; J1630; J3360; J7050

== ENCOUNTER 2018-11-24 05:13 | Emergency (ER) | payer OTHER ==
[2018-11-24 05:32] VITALS: BP 124/84
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
== END 2018-11-24 06:45 | disposition home or self-care (01) ==
LOC: LL.ED 05:13
DX: S01.81XA Laceration without foreign body of other part of head, initial encounter (principal); I10 Essential (primary) hypertension; J44.9 Chronic obstructive pulmonary disease, unspecified; K21.9 Gastro-esophageal reflux disease without esophagitis; F41.9 Anxiety disorder, unspecified; F32.9 Major depressive disorder, single episode, unspecified; W06.XXXA Fall from bed, initial encounter; Z79.899 Other long term (current) drug therapy
CPT/HCPCS: 12015; 99283; G0168

== ENCOUNTER 2019-02-11 08:21 | Emergency (ER) | payer OTHER ==
[2019-02-11] MEDS ORDERED: Albuterol/Ipratropium 3.0-0.5 MG/3 ML Neb Soln NEB ONE (08:50)
[2019-02-11] MEDS ORDERED: Furosemide 40 MG/4 ML VIAL IVPUSH ONE (08:50)
[2019-02-11] MEDS: Sodium Chloride 0.9% 10 ML Syringe FLUSH PRN ×5 (09:00→12:01)
[2019-02-11] MEDS ORDERED: Morphine 2 MG/ML Syringe IVPUSH ONE ×2 (09:10→09:42)
[2019-02-11] MEDS ORDERED: Ondansetron 4 MG/2 ML SDV IVPUSH ONE (09:10)
[2019-02-11 09:21] LABS: CHLORIDE,CL 96 mmol/L (98-107); SODIUM,NA 132 mmol/L (136-145)
[2019-02-11] MEDS ORDERED: Iopamidol 755 Mg/ML 100 ML Bottle IVPUSH ONE (09:45)
[2019-02-11] MEDS ORDERED: HYDROmorphone 1 MG/ML Syringe IVPUSH ONE (10:53)
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
[2019-02-11] MEDS ORDERED: Sodium Chloride 0.9% 500 ML IV SCH (11:00)
[2019-02-11] MEDS ORDERED: cefTRIAXone 1 GM in Sodium Chloride 0.9% 100 ML IV ONE (11:38)
[2019-02-11] MEDS ORDERED: Azithromycin 500 MG in Sodium Chloride 0.9% 250 ML IV ONE (11:38)
[2019-02-11 14:24] VITALS: BP 120/93
== END 2019-02-11 14:05 ==
LOC: LL.ED 08:21
DX: J18.1 Lobar pneumonia, unspecified organism (principal); I10 Essential (primary) hypertension; K21.9 Gastro-esophageal reflux disease without esophagitis; Z79.899 Other long term (current) drug therapy
CPT/HCPCS: 36415; 71045; 71275; 74176; 80053; 81001; 82550; 82553; 83605; 83735; 83880; 84484; 85025; 85379; 85610; 85730; 93005; 94640; 96360; 96361; 96365; 96374; 99285; G0480; J0456; J0696; J1170; J1940; J2270; J2405; J3360; J3475; J7040; J7050; Q9967; J7620-GY

== ENCOUNTER → 2019-05-11 | Outpatient (CLI) | payer OTHER | LOC: LL.MAM 08:58 | PROVIDERS: ATTEND Internal Medicine Hematology & Oncology | DX: N63.0 Unspecified lump in unspecified breast (principal); N62 Hypertrophy of breast | CPT/HCPCS: 76642-LT; 77066; G0279 ==